=== PATIENT | female | born 1945 | race Caucasian/White ===

== ENCOUNTER 2017-03-20 21:01 | Inpatient (IN) | payer OTHER ==
[~2017-03-20] VITALS: Ht 152.4 cm; Wt 95.0 kg
--- NOTE | ~2017-03-20 | OR ---
Unit #: [id number] #: [id number] Patient: SIOBHAN LEVY [id number] [address] [address] [id number] I MR#: [id number] NAME: SIOBHAN LEVY ROOM: 577 Date of Procedure: 03/24/2017 Admission Date: 03/20/2017 Surgeon: Lester Wilhelm M.D. : 1945 Attending Physician: Chris De La Paz M.D. Primary Care Physician: Areli Evangelista Aprn OPERATIVE REPORT PROCEDURE PERFORMED Colonoscopy with snare polypectomy. INDICATIONS FOR PROCEDURE A 71-year-old presented with acute GI bleeding, source unclear; anemia of acute blood loss, undergoing colonoscopy for evaluation. MEDICATIONS Monitored anesthesia. POSTOPERATIVE FINDINGS 1. Two small polyps in descending colon, 5-6 mm in size, snared and sent for histopathology. 2. Rest of the colon exam to cecum was normal. 3. Prep was adequate. 4. Small hemorrhoids. PLAN Continue to watch for any further bleeding. DESCRIPTION OF PROCEDURE The patient was explained of the procedure, risks, and benefits along with the risks and benefits of anesthesia. She was brought to the endoscopy room. Propofol anesthesia was given. Rectal exam was done, which was normal. Colonoscope was lubricated, passed up the rectum, advanced under direct vision all the way to the cecum. Cecum was identified by ileocecal valve and appendiceal orifice. Two small polyps seen in descending colon, were snared and sent for histopathology. I retroflexed in the rectum. Internal hemorrhoids noted. Gently, I pulled the scope out of the patient's body. She tolerated it well. No major complications seen. Dictated by... Ry Sanabria/bella TD: 03/24/2017 11:01 JOB #: [id number] Unit #: [id number] #: [id number] Patient: SIOBHAN LEVY OPERATIVE REPORT Page 1 of 1 X Lester Wilhelm MD X PROCEDURE OPERATIVE NOTE
--- NOTE | ~2017-03-20 | HP ---
Unit #: [id number] #: [id number] Patient: SIOBHAN LEVY [id number] [address] [place], [place] [address] [id number] I MR#: [id number] NAME: SIOBHAN LEVY ROOM: [facility] Age: 71 Sex: F Admission Date: 03/20/2017 : 1945 Attending Physician: Areli Hopkins M.D. Primary Care Physician: Areli Evangelista Aprn HISTORY AND PHYSICAL CHIEF COMPLAINT Weakness with gastrointestinal bleed. DISCUSSION This is a 71-year-old female who has a past medical history of hypertension, A fib, history of TIA, stroke in the past, dyslipidemia, aortic stenosis, asthma, COPD, cerebral aneurysm, history of CHF, sick sinus syndrome status post pacemaker, gout and chronic kidney disease. She has been having issue of lower GI bleed and weakness for 2 months, dark stools, tarry stools. She had a workup with EGD and colonoscopy 2 weeks ago at [facility] by Dr. Orona and was told okay, and she also had capsule endoscopy yesterday at [facility] by Dr. Orona. Today she presented to [facility] with similar symptoms of weakness and dark stools. She said she was not feeling very well. She was thinking, "Like I am exhausted, like dying." She denied chest pain, nausea, vomiting, and she said she has been having dark stool. No abdominal pain. No fever. No chills. On workup at [facility] she was found to have hemoglobin of 4.6, hematocrit 14.5. She was given 1 unit of packed red blood cells and a Protonix drip and eventually was transferred here. At this time she is alert, oriented x3. She denies any other complaints. No chest pain. She feels "weird," fatigued, weak, tired but no nausea, vomiting. No abdominal pain. No fever. No chills. NO cough. No chest pain. PAST MEDICAL HISTORY 1. History of sick sinus syndrome status post pacemaker. 2. Chronic kidney disease. 3. Gout. 4. History of chronic pancreatitis. 5. History of pulmonary hypertension. 6. History of atrial fibrillation. 7. Hypertension. 8. Aortic stenosis. 9. Dyslipidemia. 10. Asthma/COPD. 11. History of TIA and stroke in 2007 and 2012 with no residual deficit without eye problem, visual changes. 12. History of cerebral aneurysm. 13. Congestive heart failure. 14. History of restless leg syndrome. Unit #: [id number] #: [id number] Patient: SIOBHAN LEVY 15. History of scarlet fever. PAST SURGICAL HISTORY 1. Tubal ligation. 2. Cholecystectomy. 3. Lower leg vein stripping. SOCIAL HISTORY She used to smoke 1 pack daily for 35 to 40 years. She quit in 2002. She denies illicit drug use. FAMILY HISTORY Noncontributory. No history of colon cancer in the family. MEDICATIONS FROM HOME 1. Albuterol via nebulizer 2.6 hours p.r.n. 2. Albuterol ProAir q.6 hours p.r.n. 3. Amlodipine 5 mg daily. 4. Atorvastatin 20 mg daily. 5. Symbicort 160/4.5 mcg 2 puffs b.i.d. 6. Bumex 2 mg 1 tablet every day. 7. Coreg 6.25 p.o. b.i.d. 8. Cetirizine 10 mg daily. 9. Plavix 75 mg daily. 10. Hydralazine 10 mg 1 tablet t.i.d. 11. Isosorbide 30 mg daily. 12. Metolazone 5 mg daily. 13. Nitroglycerin 0.4 mg sublingual p.r.n. 14. Protonix 40 mg daily. 15. Ropinirole 2 mg 1 tablet at bedtime. 16. Trazodone 50 mg at bedtime. 17. Coumadin 1 mg tablet Thursday and 2 tablets all other days. 18. Multivitamin 1 tablet daily. 19. Potassium chloride 20 mEq daily. 20. Spiriva 1 HandiHaler daily. PHYSICAL EXAMINATION GENERAL: Middle-aged female lying in bed comfortably. She is alert, awake, oriented x3. Comfortable. Not in any distress. CURRENT VITALS: Temperature 99, heart rate 72, respiratory rate 18, blood pressure 108/59. HEENT: Pupils are equal and reactive to light. Head is normocephalic and atraumatic. NECK: Neck is supple. No JVD. HEART: S1, S2. Regular rate and rhythm. ABDOMEN: Abdomen is soft, nontender, nondistended. Bowel sounds are positive. EXTREMITIES: Trace edema. No cyanosis. No clubbing. NEUROLOGIC: No focal neurologic deficits. SKIN: Warm and dry. PSYCHIATRIC: Normal mood and affect. DIAGNOSTIC STUDIES LABORATORY WORKUP (from [facility]): Sodium 137, potassium 3.4, chloride 95, glucose 132, BUN 43, creatinine 1.27. LFT within normal limits. Troponin less than 0.02. White count 14, hemoglobin 4.6, hematocrit 14.5, platelets 340. INR is 6.83. UA is negative. Unit #: [id number] #: [id number] Patient: SIOBHAN LEVY ASSESSMENT AND PLAN 1. Severe anemia with history of gastrointestinal bleed. She has been under workup. She had esophagogastroduodenoscopy and colonoscopy 2 weeks ago, which she was told was normal. She had a capsule endoscopy yesterday. She is on Coumadin. INR is supratherapeutic. Will hold Coumadin and ask gastrointestinal, Dr. Wilhelm, to evaluate her. Will keep on clear liquid diet. 2. Coagulopathy with increased INR. Given vitamin K. Recheck PT-INR in the morning. Hold Coumadin. 3. History of atrial fibrillation/hypertension/congestive heart failure. 4. History of gout. 5. Chronic kidney disease. 6. History of chronic pancreatitis. 7. History of pulmonary hypertension. 8. History of aortic stenosis. 9. Dyslipidemia. 10. History of asthma/chronic obstructive pulmonary disease. Continue nebulizer, Symbicort, Spiriva. 11. History of cerebrovascular accident and transient ischemic attack in the past. Hold Plavix at this time. 12. History of congestive heart failure. 13. Cerebral aneurysm. 14. Restless leg syndrome. 15. Deep vein thrombosis prophylaxis. Will place the patient on sequential compression devices. 1. Dictated by Ry Dixon TD: 03/21/2017 09:38 JOB #: [id number] HISTORY AND PHYSICAL Page 1 of 1 X X HISTORY AND PHYSICAL
--- NOTE | ~2017-03-20 | DS ---
Unit #: [id number] #: [id number] Patient: SIOBHAN LEVY [id number] [id number] [facility]. [place], [place] [address] [id number] I MR#: [id number] NAME: SIOBHAN LEVY ROOM: 577 Age: 71 Sex: F Admission Date: 03/20/2017 : 1945 Discharge Date: 03/24/2017 Attending Physician: Chrsi De La Paz M.D. Primary Care Physician: Areli Evangelista Aprn DISCHARGE SUMMARY DISCHARGE DIAGNOSES Acute blood loss anemia; gastrointestinal bleed; atrial fibrillation, on Coumadin; history of stroke; and Coumadin toxicity. HOSPITAL COURSE The patient is a 71-year-old female, who presents to [facility] Emergency Department with complaint of weakness and GI bleeding. Apparently, she has been having a workup for this issue off and on for two months. The patient has had over the same time frame a history of dark tarry stools. She had an EGD and a colonoscopy two weeks prior to presentation and were reported as negative. Additionally, the patient had a capsule endoscopy the day prior to presentation. The results of which are unavailable at this time. In the ED, the patient was noted to have a hemoglobin of 5.7. She was ultimately transfused three units of packed red cells and responded appropriately. The patient was seen in consultation by Gastroenterology and she underwent EGD. She was noted to have a hiatal hernia and a nonobstructing esophageal ring. She had mild gastritis with no active bleeding. She was noted to have a 5 mm AVM about 30 cm into the proximal jejunum. It was cauterized. In addition, the patient underwent colonoscopy with no reported source of bleeding found. At this time given no further bleeding and stable hemoglobin and negative work up, the patient is being discharged home. I had a conversation with her regarding the risks versus benefits of Coumadin. Regardless of whether she ultimately decides to go back on Coumadin or not, the patient is to stay off Coumadin for the next two weeks. DISCHARGE MEDICATIONS Albuterol sulfate per nebulizer q.6 hours as needed for wheezing. ProAir RespiClick q.i.d. as needed for wheezing. Acetaminophen 650 mg p.o. q.4 hours p.r.n. Trazodone 50 mg p.o. at bedtime. Zyrtec 10 mg p.o. daily. Requip 2 mg p.o. at bedtime. Coreg 3.125 mg p.o. b.i.d. Norvasc 5 mg daily. Breo Ellipta 200/25 one inhalation daily. Bumex 2 mg daily. Metolazone 5 mg daily. Lipitor 20 mg daily. Hydralazine 10 mg p.o. t.i.d. Multivitamin daily. Plavix 75 mg daily. Protonix 40 mg p.o. b.i.d. Potassium chloride 40 mEq daily. Isosorbide mononitrate ER 30 mg p.o. in the morning. Nitrostat 0.4 mg sublingual q.5 minutes x3 doses max Unit #: [id number] #: [id number] Patient: SIOBHAN LEVY chest pain. FOLLOWUP The patient should follow up with her primary care provider and her learn to swim instructor within the next 1 to 2 weeks. Dictated by... Chris De La Paz M.D. ETIENNE/bella TD: 03/26/2017 03:25 JOB #: [id number] DISCHARGE SUMMARY Page 1 of 1 X Chris De La Paz MD X DISCHARGE SUMMARY
--- NOTE | ~2017-03-20 | BMI ---
[facility] Nutrition Therapy DATE: 03/23/17 Patient: SIOBHAN LEVY Physician: AMITA Address: SIOBHAN LEVY Room/Bed: [address], Zip: [place] [address] Admit Date: 03/20/17 Date of : [birth year] Height: 5 0 Weight: 209 95 HIGH BMI NOTE: DX: 71 Y.O. FEMALE ADMITTED FOR GI BLEED ANTHROPOMETRICS: 5'0", WT: 209# (95 KG), BMI: 40.8 DIET: CLEAR LIQUID RECOMMENDATIONS: 1. ONCE MEDICALLY FEASIBLE, ADVANCE DIET INDICATED TO HEALTHY HEART TO PROMOTE GRADUAL WEIGHT LOSS TOWARDS HEALTHY BMI (19.0-25.0) OR +/-10%IBW RD WILL F/U PER PROTOCOL Respectfully, MAYE CHRISTIANSON MS, RD, LD [facility] cc: client file
--- NOTE | ~2017-03-20 | CO ---
Unit #: [id number] #: [id number] Patient: SIOBHAN GOODWIN [id number] [address] [address] [id number] I MR#: [id number] NAME: SIOBHAN GOODWIN ROOM: [facility] Age: 71 Sex: F Admission Date: 03/20/2017 : 1945 Attending Physician: Areli Hopkins M.D. Primary Care Physician: Areli Evangelista Aprn Consultation Date: 03/22/2017 CONSULTATION REPORT REASON FOR CONSULTATION GI bleeding. PRIMARY CARE PHYSICIAN Areli Evangelista APRN. HISTORY OF PRESENT ILLNESS Ms. Goodwin is a 71-year-old lady with history of strokes, on Coumadin, Plavix, and aspirin. She presented with black stools, which has been dark and tarry for last several days. She was feeling very very weak. She said she feels like very exhausted. She denies abdominal pain. She denies any chest pain. She denies any vomiting or hematemesis. The patient had a history of similar GI bleeding. In November, she had upper and lower endoscopy done, which was unremarkable, but for small polyps per the patient. She also had a capsule endoscopy done by Dr. Farhat Orona 2 weeks ago, which had shown blood in the duodenum as well as the ileum. Otherwise, no clear cause was established. PAST MEDICAL HISTORY Significant for sick sinus syndrome, chronic kidney disease, chronic pancreatitis, history of pulmonary hypertension, history of atrial fibrillation, history of strokes. SOCIAL HISTORY Ex-smoker. Denies alcohol. Denies drugs FAMILY HISTORY No history of colon cancer in the family. MEDICATIONS At home included Coumadin, Plavix, aspirin, metolazone, isosorbide, Coreg, Bumex, Lipitor, amlodipine, and inhalers. PHYSICAL EXAMINATION VITAL SIGNS: Stable at this point. GENERAL: No acute distress. HEENT: Pupils are equal and reactive. Sclerae are anicteric. Oral mucosa moist. NECK: No JVD. No lymphadenopathy. CHEST: Clear to auscultation bilaterally. CARDIOVASCULAR: Regular rate and rhythm. No murmurs. ABDOMEN: Soft, nontender, and nondistended. EXTREMITIES: Without clubbing, cyanosis, or edema. Unit #: [id number] #: [id number] Patient: SIOBHAN GOODWIN NEUROLOGIC: No focal sensory or motor deficits. Cranial nerves are intact. SKIN: Warm and dry. DIAGNOSTIC STUDIES LABORATORY RESULTS: On arrival, her hemoglobin was 5.7 with transfusions come up to 9.2, normal platelet counts, white count elevated at 12,500. Coags, INR of 1.6. Chemistry showed BUN and creatinine being normal. BNP of 413. LFTs were normal. ASSESSMENT AND PLAN 1. The patient with recurrent gastrointestinal bleeding, source unidentified given the capsule readings recently could be the small bowel. At this point, we will plan on doing an upper endoscopy and push enteroscopy for evaluation. I will get a previous reports from [facility] depending on the progression and findings in the upper endoscopy and push enteroscopy. Colonoscopy may also be needed. 2. Anemia of acute blood loss, aggressive medical management transfusion as necessary. 3. Multiple anticoagulants, will hold off on Coumadin as well as Plavix for now. We will discuss with Cardiology regarding cutting down or eliminating some of them. Thank you, Dr. Hopkins for this interesting consult. We will follow along. Dictated by... Ry Sanabria/bella TD: 03/22/2017 13:46 JOB #: [id number] CONSULTATION REPORT Page 1 of 1 X Lester Wilhelm MD CONSULTATION REPORT
--- NOTE | ~2017-03-20 | OR ---
Unit #: [id number] #: [id number] Patient: SIOBHAN LEVY [id number] [facility] [address] [place], [place] [address] [id number] I MR#: [id number] NAME: SIOBHAN LEVY ROOM: [facility] Date of Procedure: 03/22/2017 Admission Date: 03/20/2017 Surgeon: Lester Wilhelm M.D. : 1945 Attending Physician: Areli Hopkins M.D. Primary Care Physician: Areli Evangelista Aprn OPERATIVE REPORT JOB NOTE: CC: PRIMARY CARE PHYSICIAN PROCEDURE PERFORMED Esophagogastroduodenoscopy with heater probe cautery as well as epinephrine injection and push enteroscopy to proximal jejunum. INDICATIONS Upper GI bleeding and anemia of acute blood loss, undergoing upper endoscopy and push enteroscopy. Abnormal capsule endoscopy recently was reviewed also. POSTOPERATIVE FINDINGS 1. EGD exam shows evidence of a hiatal hernia along with a nonobstructing esophageal ring. 2. Mild gastritis. No active bleeding seen. 3. Duodenal bulb was normal. 4. Jejunum was seen up to 50 cm from the duodenal bulb. There was an AVM seen about 5 mm at about 30 cm into the proximal jejunum. It was cauterized using heater probe. 2 mL of diluted epinephrine was injected in the location also. 5. No other AVMs or abnormalities were seen. PLAN Continue to watch for any further bleeding. We will consider colonoscopy for further evaluation if there is any further drop. DESCRIPTION OF PROCEDURE The patient was explained of the procedure, risks, and benefits along with risks and benefits of anesthesia. Endo Team was brought to the ICU. The scope was passed down the mouth into the esophagus, stomach, duodenum and distal duodenum, and then further about 50 cm into the proximal jejunum. Findings have been described. Heater probe cautery was carried out of the AVM. Epinephrine was injected at that base afterwards. The scope was carefully withdrawn. No other AVM seen. Mild gastritis noted. No biopsies were taken. Gently, the scope was pulled through the esophagus again. Hiatal hernia was noted. The patient tolerated the procedure well. No major complications were seen. Dictated by... Lester Wilhelm M.D. Unit #: [id number] #: [id number] Patient: MILDREDSIOBHAN ORTEGA/bella TD: 03/22/2017 13:27 JOB #: [id number] OPERATIVE REPORT Page 1 of 1 X Lester Wilhelm MD PROCEDURE OPERATIVE NOTE
[2017-03-20] MEDS ORDERED: ALBUTEROL2.5 MG/3 M NEB (21:30)
[2017-03-20] MEDS ORDERED: PROAIR RESPICL90 MCG INH (21:33)
[2017-03-20] MEDS ORDERED: LIPITOR20 MG PO (21:35)
[2017-03-20] MEDS ORDERED: AMLODIPINE BESYL5 MG PO (21:35)
[2017-03-20] MEDS ORDERED: BREO ELLIPTA 21 EACH INH (21:36)
[2017-03-20] MEDS ORDERED: BUMEX2 MG PO (21:37)
[2017-03-20] MEDS ORDERED: CARVEDILOL3.125 MG PO (21:37)
[2017-03-20] MEDS ORDERED: ZYRTEC10 M2 PO (21:38)
[2017-03-20] MEDS ORDERED: CLOPIDOGREL BIS75 MG PO (21:39)
[2017-03-20] MEDS ORDERED: ISOSORBIDE MONO30 M1 PO (21:40)
[2017-03-20] MEDS ORDERED: HYDRALAZINE HCL10 MG PO (21:40)
[2017-03-20] MEDS ORDERED: METOLAZONE5 MG PO (21:41)
[2017-03-20] MEDS ORDERED: NITROSTAT0.4 MG SL (21:43)
[2017-03-20] MEDS ORDERED: PROTONIX PO (21:44)
[2017-03-20] MEDS ORDERED: DESYREL50 MG PO (21:45)
[2017-03-20] MEDS ORDERED: REQUIP2 MG PO (21:45)
[2017-03-20] MEDS ORDERED: COUMADIN PO ×2 (21:46→21:47)
[2017-03-20] MEDS ORDERED: MULTI VITAMIN1 EACH PO (21:48)
[2017-03-20] MEDS ORDERED: ACETAMINOPHEN650 M4 PO (21:49)
[2017-03-20] MEDS ORDERED: POTASSIUM CHLO20 ME1 PO (21:50)
[2017-03-20 22:06] LABS: BASOPHIL# 0.1 X10e3 (0-0.3); BASOPHIL% 0.5 % (0-2.5); EOSINOPHIL# 0.1 X10e3 (0-0.7); EOSINOPHIL% 0.7 % (0.0-7.0); HEMATOCRIT 18.5 % (35.0-45.0); LYMPHOCYTE# 2.1 X10e3 (1.0-3.5); LYMPHOCYTE% 14.4 % (17.0-45.0); MEAN CELL VOLUME 94.3 FL (83-96); MEAN CORPUSCULAR HEMOGLOBIN 29.3 PG (28-34); MEAN PLATELET VOLUME 6.9 FL (6.5-11.5); MONOCYTE# 1.3 X10e3 (0-1.0); MONOCYTE% 8.8 % (3.0-12.0); NEUTROPHIL# 11.1 X10e3 (1.5-7.1); NEUTROPHIL% 75.6 % (40-75); PLATELET COUNT 312 X10e3 (140-420); RED BLOOD COUNT 1.96 X10e (3.90-5.30); RED CELL DISTRIBUTION WIDTH 20.9 % (11.0-15.5); WHITE BLOOD COUNT 14.7 X10e3 (4.0-10.5)
[2017-03-20 22:09] LABS: DIFF IND YES; HEMOGLOBIN 5.7 gm/dL (12.0-16.0)
[2017-03-20 22:28] LABS: BUN/CREATININE RATIO 29.23; CALCIUM SERUM 7.8 mg/dL (8.4-10.2); CREATININE SERUM 1.3 mg/dL (0.6-1.4); GLOM FILT RATE Estimated 40.7 mL/min (>60); POTASSIUM 3.5 mmol/L (3.5-5.1)
[2017-03-20 22:56] LABS: NUCLEATED RED BLOOD CELL 1 /100 (0); PLATELET ESTIMATE NORMAL (NORMAL)
[2017-03-20 23:00] LABS: HYPERSEGMENTED POLYS PRESENT; HYPOCHROMIA MOD; POLYCHROMASIA MOD
[2017-03-20 23:01] LABS: POIKILOCYTOSIS SL
[2017-03-20 23:02] LABS: VACUOLIZATION P
[2017-03-21 05:19] LABS: BASOPHIL# 0.1 X10e3 (0-0.3); BASOPHIL% 0.4 % (0-2.5); EOSINOPHIL# 0.1 X10e3 (0-0.7); EOSINOPHIL% 0.6 % (0.0-7.0); HEMATOCRIT 21.4 % (35.0-45.0); LYMPHOCYTE# 1.5 X10e3 (1.0-3.5); LYMPHOCYTE% 10.3 % (17.0-45.0); MEAN CORPUSCULAR HGB CONC 31.6 g/dL (30-36); MEAN PLATELET VOLUME 6.9 FL (6.5-11.5); MONOCYTE# 1.1 X10e3 (0-1.0); MONOCYTE% 7.9 % (3.0-12.0); NEUTROPHIL# 11.4 X10e3 (1.5-7.1); NEUTROPHIL% 80.8 % (40-75); PLATELET COUNT 294 X10e3 (140-420); RED BLOOD COUNT 2.41 X10e (3.90-5.30); RED CELL DISTRIBUTION WIDTH 22.6 % (11.0-15.5); WHITE BLOOD COUNT 14.2 X10e3 (4.0-10.5)
[2017-03-21 05:31] LABS: HEMOGLOBIN 6.8 gm/dL (12.0-16.0); MEAN CELL VOLUME 88.8 FL (83-96)
[2017-03-21 05:32] LABS: DIFF IND NO
[2017-03-21 05:41] LABS: INR 4.2; PROTHROMBIN TIME (PATIENT) 46.1 SECONDS (10.0-11.7)
[2017-03-21 06:41] LABS: BILIRUBIN,TOTAL 0.6 mg/dL (0.2-2.0); BUN/CREATININE RATIO 26.66; CREATININE SERUM 1.2 mg/dL (0.6-1.4); GLOM FILT RATE Estimated 44.8 mL/min (>60); POTASSIUM 4.1 mmol/L (3.5-5.1); PROTEIN TOTAL SERUM 5.3 g/dL (6.0-8.3)
[2017-03-21 11:11] LABS: HEMATOCRIT 24.8 % (35.0-45.0)
[2017-03-21 19:43] LABS: HEMATOCRIT 25.5 % (35.0-45.0); HEMOGLOBIN 8.3 gm/dL (12.0-16.0)
[2017-03-22 06:15] LABS: BASOPHIL# 0.1 X10e3 (0-0.3); BASOPHIL% 0.4 % (0-2.5); EOSINOPHIL# 0.2 X10e3 (0-0.7); EOSINOPHIL% 1.9 % (0.0-7.0); HEMATOCRIT 28.8 % (35.0-45.0); HEMOGLOBIN 9.2 gm/dL (12.0-16.0); LYMPHOCYTE# 1.3 X10e3 (1.0-3.5); LYMPHOCYTE% 10.4 % (17.0-45.0); MEAN CELL VOLUME 90.5 FL (83-96); MEAN CORPUSCULAR HEMOGLOBIN 28.9 PG (28-34); MEAN PLATELET VOLUME 7.3 FL (6.5-11.5); MONOCYTE# 0.8 X10e3 (0-1.0); MONOCYTE% 6.5 % (3.0-12.0); NEUTROPHIL# 10.1 X10e3 (1.5-7.1); NEUTROPHIL% 80.8 % (40-75); PLATELET COUNT 262 X10e3 (140-420); RED BLOOD COUNT 3.18 X10e (3.90-5.30); RED CELL DISTRIBUTION WIDTH 19.5 % (11.0-15.5); WHITE BLOOD COUNT 12.5 X10e3 (4.0-10.5)
[2017-03-22 06:21] LABS: INR 1.6
[2017-03-22 06:24] LABS: PROTHROMBIN TIME (PATIENT) 17.8 SECONDS (10.0-11.7)
[2017-03-22 06:34] LABS: DIFF IND NO
[2017-03-22 07:09] LABS: BUN/CREATININE RATIO 15.83; CALCIUM SERUM 8.1 mg/dL (8.4-10.2); CREATININE SERUM 1.2 mg/dL (0.6-1.4); GLOM FILT RATE Estimated 44.8 mL/min (>60); POTASSIUM 4.1 mmol/L (3.5-5.1)
[2017-03-22 16:57] LABS: HEMATOCRIT 26.6 % (35.0-45.0); HEMOGLOBIN 8.5 gm/dL (12.0-16.0)
[2017-03-23 05:24] LABS: BASOPHIL% 0.4 % (0-2.5); EOSINOPHIL# 0.2 X10e3 (0-0.7); EOSINOPHIL% 2.2 % (0.0-7.0); HEMATOCRIT 28.6 % (35.0-45.0); HEMOGLOBIN 9.1 gm/dL (12.0-16.0); LYMPHOCYTE% 10.2 % (17.0-45.0); MEAN CELL VOLUME 91.5 FL (83-96); MEAN CORPUSCULAR HEMOGLOBIN 29.3 PG (28-34); MEAN PLATELET VOLUME 7.1 FL (6.5-11.5); MONOCYTE# 0.7 X10e3 (0-1.0); MONOCYTE% 6.7 % (3.0-12.0); NEUTROPHIL# 8.2 X10e3 (1.5-7.1); NEUTROPHIL% 80.5 % (40-75); PLATELET COUNT 230 X10e3 (140-420); RED BLOOD COUNT 3.13 X10e (3.90-5.30); RED CELL DISTRIBUTION WIDTH 19.9 % (11.0-15.5); WHITE BLOOD COUNT 10.1 X10e3 (4.0-10.5)
[2017-03-23 05:36] LABS: DIFF IND NO
[2017-03-23 06:10] LABS: ALBUMIN SERUM 2.9 g/dL (3.5-5.0); BILIRUBIN,TOTAL 0.8 mg/dL (0.2-2.0); CALCIUM SERUM 8.1 mg/dL (8.4-10.2); GLOM FILT RATE Estimated 55.9 mL/min (>60); POTASSIUM 3.9 mmol/L (3.5-5.1); PROTEIN TOTAL SERUM 4.8 g/dL (6.0-8.3)
[2017-03-23 07:22] LABS: INR 1.1; PROTHROMBIN TIME (PATIENT) 12.1 SECONDS (10.0-11.7)
[2017-03-24 05:55] LABS: BASOPHIL% 0.3 % (0-2.5); EOSINOPHIL# 0.2 X10e3 (0-0.7); EOSINOPHIL% 1.9 % (0.0-7.0); HEMOGLOBIN 9.7 gm/dL (12.0-16.0); LYMPHOCYTE# 0.7 X10e3 (1.0-3.5); LYMPHOCYTE% 6.8 % (17.0-45.0); MEAN CELL VOLUME 91.6 FL (83-96); MEAN CORPUSCULAR HEMOGLOBIN 29.7 PG (28-34); MEAN CORPUSCULAR HGB CONC 32.4 g/dL (30-36); MONOCYTE# 0.6 X10e3 (0-1.0); MONOCYTE% 6.7 % (3.0-12.0); NEUTROPHIL% 84.3 % (40-75); PLATELET COUNT 294 X10e3 (140-420); RED BLOOD COUNT 3.27 X10e (3.90-5.30); RED CELL DISTRIBUTION WIDTH 19.5 % (11.0-15.5); WHITE BLOOD COUNT 9.5 X10e3 (4.0-10.5)
[2017-03-24 06:09] LABS: DIFF IND NO
[2017-03-24 06:47] LABS: BILIRUBIN,TOTAL 0.8 mg/dL (0.2-2.0); BUN/CREATININE RATIO 8.88; CALCIUM SERUM 8.2 mg/dL (8.4-10.2); CREATININE SERUM 0.9 mg/dL (0.6-1.4); GLOM FILT RATE Estimated 63.5 mL/min (>60); POTASSIUM 4.3 mmol/L (3.5-5.1); PROTEIN TOTAL SERUM 5.3 g/dL (6.0-8.3)
== END 2017-03-24 16:27 | disposition home or self-care (01) | DRG 345 ==
LOC: C2A 21:01 → CICCU2 21:01 → C5C 03-23 16:33
PROVIDERS: Family Medicine; Internal Medicine
PROC: 30233N1 Transfusion of Nonautologous Red Blood Cells into Peripheral Vein, Percutaneous Approach (ICD-10-PCS; 2017-03-20)
PROC: 05H533Z Insertion of Infusion Device into Right Subclavian Vein, Percutaneous Approach (ICD-10-PCS; 2017-03-21)
PROC: B546ZZA Ultrasonography of Right Subclavian Vein, Guidance (ICD-10-PCS; 2017-03-21)
PROC: 0D5A8ZZ Destruction of Jejunum, Via Natural or Artificial Opening Endoscopic (ICD-10-PCS; 2017-03-22 12:08)
PROC: 0DBM8ZX Excision of Descending Colon, Via Natural or Artificial Opening Endoscopic, Diagnostic (ICD-10-PCS; principal; 2017-03-24 07:30)
DX: K31.811 Angiodysplasia of stomach and duodenum with bleeding (principal); D62 Acute posthemorrhagic anemia; I67.1 Cerebral aneurysm, nonruptured; I27.2 Other secondary pulmonary hypertension; Z68.41 Body mass index [BMI] 40.0-44.9, adult; I48.91 Unspecified atrial fibrillation; I13.0 Hypertensive heart and chronic kidney disease with heart failure and stage 1 through stage 4 chronic kidney disease, or unspecified chronic kidney disease; I50.9 Heart failure, unspecified; G25.81 Restless legs syndrome; Z86.73 Personal history of transient ischemic attack (TIA), and cerebral infarction without residual deficits; E78.5 Hyperlipidemia, unspecified; I35.0 Nonrheumatic aortic (valve) stenosis; J44.9 Chronic obstructive pulmonary disease, unspecified; Z95.0 Presence of cardiac pacemaker; Z90.49 Acquired absence of other specified parts of digestive tract; Z98.51 Tubal ligation status; Z87.891 Personal history of nicotine dependence; Z79.01 Long term (current) use of anticoagulants; Z79.82 Long term (current) use of aspirin; K63.5 Polyp of colon; K64.8 Other hemorrhoids; K44.9 Diaphragmatic hernia without obstruction or gangrene; K29.70 Gastritis, unspecified, without bleeding; K22.2 Esophageal obstruction; N18.3 Chronic kidney disease, stage 3 (moderate); M10.9 Gout, unspecified; E66.01 Morbid (severe) obesity due to excess calories
CPT/HCPCS: 80048; 80053; 82947; 83605; 83880; 85014; 85018; 85025; 85610; 86850; 86900; 86901; 86923; 88305; 94760; 94761; C9113; J0171; J2250; J3430; P9016